=== PATIENT | female | born 1970 | race Caucasian/White ===

== ENCOUNTER 2016-10-18 16:57 | Emergency (ER) | payer MEDICARE ==
[~2016-10-18] VITALS: Ht 172.7 cm; Wt 72.7 kg
[~2016-10-18 16:57] MED LIST: CLON2TAB16 PO; DIVA500T2 PO; GABA800T2 PO; LEVO75TA5 PO; MIRT30TA3 PO; OMEP10SU PO; ONDA4TAB7 PO; PROP10TA PO; SERT50TA PO; SUCR1TAB26 PO
[2016-10-18 16:58] VITALS: BP 134/83
[2016-10-18] MEDS ORDERED: DIAZEPAM 5 MG TABLET PO ONE (17:30)
[2016-10-18] MEDS ORDERED: OXYcodone/APAP 5/325MG TABLET PO ONE ×2 (17:30→20:00)
[2016-10-18] MEDS ORDERED: METHOCARBAMOL 750 MG TABLET PO ONE (18:30)
[2016-10-18] MEDS ORDERED: KETOROLAC 30 MG/1 ML IM ONE (18:30)
[2016-10-18] MEDS ORDERED: METHOCARBAMOL 750 MG TABLET ONE (18:41)
[2016-10-18] MEDS ORDERED: KETOROLAC 30 MG/1 ML ONE (18:41)
[2016-10-18] MEDS ORDERED: OXYcodone/APAP 5/325MG TABLET ONE (19:58)
== END 2016-10-18 20:11 | disposition home or self-care (01) ==
LOC: ED 20:05
DX: M51.26 Other intervertebral disc displacement, lumbar region (principal); M54.16 Radiculopathy, lumbar region; Z85.038 Personal history of other malignant neoplasm of large intestine; E07.9 Disorder of thyroid, unspecified; Z88.6 Allergy status to analgesic agent; Z88.2 Allergy status to sulfonamides; Z88.1 Allergy status to other antibiotic agents; Z88.8 Allergy status to other drugs, medicaments and biological substances
CPT/HCPCS: 72148; 81003; 96372; 99285; J1885

== ENCOUNTER 2016-10-20 11:47 | Emergency (ER) | payer MEDICARE ==
[~2016-10-20] VITALS: Ht 172.7 cm; Wt 76.6 kg
[2016-10-20] MEDS ORDERED: SODIUM CHLORIDE 0.9% 1,000 ML IV ONE (12:20)
[2016-10-20] MEDS ORDERED: SODIUM CHLORIDE 0.9% 1,000ML IV ONE (12:30)
[2016-10-20] MEDS ORDERED: HYDROmorphone 1 MG/ML, 1ML IVPush PRN (12:30)
[2016-10-20] MEDS ORDERED: HYDROmorphone 1 MG/ML, 1ML ONE (13:26)
[2016-10-20] MEDS ORDERED: DIAZEPAM 5 MG/ML, 10ML VIAL IVPush ONE (13:30)
[2016-10-20 13:48] LABS: BLOOD UREA NITROGEN 18 mg/dL (7-18)
[2016-10-20] MEDS ORDERED: DEXAMETHASONE 4 MG/ML, 5ML ONE (13:59)
[2016-10-20] MEDS ORDERED: DEXAMETHASONE 4 MG/ML, 5ML IVPush ONE (14:00)
[2016-10-20 14:03] VITALS: BP 108/57
== END 2016-10-20 16:40 | disposition home or self-care (01) ==
LOC: ED 14:32
DX: M54.16 Radiculopathy, lumbar region (principal); Z85.038 Personal history of other malignant neoplasm of large intestine; Z85.028 Personal history of other malignant neoplasm of stomach; Z88.8 Allergy status to other drugs, medicaments and biological substances; Z88.2 Allergy status to sulfonamides; Z88.6 Allergy status to analgesic agent; Z88.1 Allergy status to other antibiotic agents; F17.200 Nicotine dependence, unspecified, uncomplicated
CPT/HCPCS: 36415; 80048; 82040; 85025; 96361; 96374; 96375; 99285; J1170; J3360; J7030

== ENCOUNTER 2016-10-25 10:29 | Emergency (ER) | payer MEDICARE, MEDICAID ==
[~2016-10-25] VITALS: Ht 172.7 cm; Wt 72.6 kg
[2016-10-25] MEDS ORDERED: SODIUM CHLORIDE 0.9% 1,000ML IV ONE (12:00)
[2016-10-25] MEDS ORDERED: KETOROLAC 30 MG/1 ML IVPush ONE (12:00)
[2016-10-25] MEDS ORDERED: SODIUM CHLORIDE FLUSH 10ML SYR IVF ONE (12:00)
[2016-10-25] MEDS ORDERED: HYDROmorphone 1 MG/ML, 1ML IVPush PRN (12:00)
[2016-10-25] MEDS ORDERED: METHOCARBAMOL 750 MG TABLET PO ONE (12:00)
[2016-10-25] MEDS ORDERED: KETOROLAC 30 MG/1 ML ONE (12:10)
[2016-10-25] MEDS ORDERED: METHOCARBAMOL 750 MG TABLET ONE (12:10)
[2016-10-25] MEDS ORDERED: HYDROmorphone 1 MG/ML, 1ML ONE (12:10)
[2016-10-25 12:33] LABS: BLOOD UREA NITROGEN 9 mg/dL (7-18)
[2016-10-25 14:05] VITALS: BP 120/76
== END 2016-10-25 14:58 | disposition home or self-care (01) ==
LOC: ED 12:59
DX: M51.16 Intervertebral disc disorders with radiculopathy, lumbar region (principal); Z85.028 Personal history of other malignant neoplasm of stomach; R33.9 Retention of urine, unspecified
CPT/HCPCS: 36415; 80048; 81003; 82040; 85025; 96361; 96374; 96375; 99285; J1170; J1885; J7030

== ENCOUNTER 2016-11-16 11:00 | Emergency (ER) | payer MEDICARE, MEDICAID ==
[~2016-11-16] VITALS: Ht 172.7 cm; Wt 74.0 kg
[2016-11-16 11:01] VITALS: BP 106/58
== END 2016-11-16 13:01 | disposition home or self-care (01) ==
LOC: ED 12:55
DX: Z32.01 Encounter for pregnancy test, result positive (principal); G89.29 Other chronic pain; M54.5 Low back pain; R11.0 Nausea; M79.89 Other specified soft tissue disorders; Z85.038 Personal history of other malignant neoplasm of large intestine; Z85.028 Personal history of other malignant neoplasm of stomach; F17.210 Nicotine dependence, cigarettes, uncomplicated
CPT/HCPCS: 36415; 84703; 99283

== ENCOUNTER 2016-11-22 15:54 | Emergency (ER) | payer MEDICARE, MEDICAID ==
[~2016-11-22] VITALS: Ht 172.7 cm; Wt 73.9 kg
[2016-11-22 16:40] LABS: ASPARTATE AMINO TRANSFERASE 12 U/L (15-37); BLOOD UREA NITROGEN 11 mg/dL (7-18)
[2016-11-22] MEDS ORDERED: PREN-3 PO (17:22)
[2016-11-22 17:47] LABS: PATH.CAST-FLAG NOT PRESENT; SPERM-FLAG NOT PRESENT; SRC-FLAG NOT PRESENT; XTAL-FLAG NOT PRESENT; YLC-FLAG NOT PRESENT
[2016-11-22 18:49] VITALS: BP 110/50
== END 2016-11-22 19:57 | disposition home or self-care (01) ==
LOC: ED 17:36
DX: O20.9 Hemorrhage in early pregnancy, unspecified (principal); Z3A.10 10 weeks gestation of pregnancy; Z87.891 Personal history of nicotine dependence; Z85.038 Personal history of other malignant neoplasm of large intestine
CPT/HCPCS: 36415; 76801; 80053; 81001; 84702; 85025; 86901; 99285

== ENCOUNTER 2016-11-23 12:58 | Emergency (ER) | payer MEDICARE, MEDICAID ==
[~2016-11-23] VITALS: Ht 172.7 cm; Wt 74.3 kg
[~2016-11-23 12:58] MED LIST changes: +PREN-3 PO
[2016-11-23] MEDS ORDERED: SODIUM CHLORIDE 0.9% 1,000ML IVBOLUS ONE (14:30)
[2016-11-23] MEDS ORDERED: MORPHINE SULFATE 4 MG/ML, 1ML IVPush PRN (14:30)
[2016-11-23] MEDS ORDERED: ONDANSETRON 2MG/ML, 2ML IVPush ONE (14:30)
[2016-11-23] MEDS ORDERED: SODIUM CHLORIDE FLUSH 10ML SYR IVF ONE (14:30)
[2016-11-23] MEDS ORDERED: ONDANSETRON 2MG/ML, 2ML ONE (14:32)
[2016-11-23] MEDS ORDERED: MORPHINE SULFATE 4 MG/ML, 1ML ONE (14:32)
[2016-11-23 16:12] VITALS: BP 104/49
== END 2016-11-23 16:14 | disposition home or self-care (01) ==
LOC: ED 14:20
DX: O26.899 Other specified pregnancy related conditions, unspecified trimester (principal); R10.30 Lower abdominal pain, unspecified; O99.330 Smoking (tobacco) complicating pregnancy, unspecified trimester; F17.200 Nicotine dependence, unspecified, uncomplicated; Z88.6 Allergy status to analgesic agent; Z88.1 Allergy status to other antibiotic agents; Z88.2 Allergy status to sulfonamides; Z88.8 Allergy status to other drugs, medicaments and biological substances; Z3A.00 Weeks of gestation of pregnancy not specified
CPT/HCPCS: 36415; 76801; 81001; 84702; 85025; 96361; 96374; 96375; 99285; J2405; J7030

== ENCOUNTER 2016-12-20 17:47 | Emergency (ER) | payer MEDICARE, MEDICAID ==
[~2016-12-20] VITALS: Ht 172.7 cm; Wt 72.6 kg
[2016-12-20 17:50] VITALS: BP 116/75
== END 2016-12-20 18:43 | disposition left against medical advice (07) ==
LOC: ED 18:37
DX: K13.79 Other lesions of oral mucosa (principal); Z53.21 Procedure and treatment not carried out due to patient leaving prior to being seen by health care provider

== ENCOUNTER 2016-12-30 09:16 | Emergency (ER) | payer MEDICARE, MEDICAID ==
[~2016-12-30] VITALS: Ht 172.7 cm; Wt 70.9 kg
[~2016-12-30 09:16] MED LIST changes: -SUCR1TAB26 PO; +SUCR1TAB33 PO
[2016-12-30 09:17] VITALS: BP 123/81
== END 2016-12-30 10:14 | disposition home or self-care (01) ==
LOC: ED 09:32
DX: E03.9 Hypothyroidism, unspecified (principal); F31.9 Bipolar disorder, unspecified; G62.9 Polyneuropathy, unspecified
CPT/HCPCS: 93005; 99283

== ENCOUNTER 2017-01-19 14:30 | Emergency (ER) | payer MEDICARE, MEDICAID ==
[~2017-01-19] VITALS: Ht 172.7 cm; Wt 71.5 kg
[2017-01-19 14:32] VITALS: BP 137/84
== END 2017-01-19 15:25 | disposition home or self-care (01) ==
LOC: ED 15:20
DX: F41.1 Generalized anxiety disorder (principal); F31.9 Bipolar disorder, unspecified; Z85.038 Personal history of other malignant neoplasm of large intestine; Z88.6 Allergy status to analgesic agent; Z88.2 Allergy status to sulfonamides; Z88.8 Allergy status to other drugs, medicaments and biological substances
CPT/HCPCS: 99283

== ENCOUNTER 2017-05-28 07:19 | Emergency (ER) | payer MEDICARE, MEDICAID ==
[~2017-05-28] VITALS: Ht 172.7 cm; Wt 81.1 kg
[~2017-05-28 07:19] MED LIST changes: -OMEP10SU PO; +OMEP10SU2 PO
[2017-05-28] MEDS ORDERED: KETOROLAC 30 MG/1 ML IM ONE (08:30)
[2017-05-28] MEDS ORDERED: CYCLOBENZAPRINE 10 MG TABLET PO ONE (08:30)
[2017-05-28] MEDS ORDERED: SODIUM CHLORIDE FLUSH 10ML SYR IVF ONE (08:30)
[2017-05-28] MEDS ORDERED: CYCLOBENZAPRINE 10 MG TABLET ONE (08:40)
[2017-05-28 08:41] LABS: BASOPHILS % (AUTO) 1 % (0-1); EOSINOPHILS # (AUTO) 1.39 x10^3/uL (0-0.4); EOSINOPHILS % (AUTO) 18 % (1-7); LYMPHOCYTES # (AUTO) 1.18 x10^3/uL (1-3.4); LYMPHOCYTES % (AUTO) 15 % (22-44); MD NO; MEAN CORPUSCULAR HEMOGLOBIN 30.2 pg (27.0-34.8); MEAN CORPUSCULAR HGB CONC 33.4 g/dL (32.4-35.8); MEAN CORPUSCULAR VOLUME 90.6 fL (80-100); MEAN PLATELET VOLUME 8.2 fL (7.4-10.4); MONOCYTES # (AUTO) 0.22 x10^3/uL (0.2-0.8); MONOCYTES % (AUTO) 3 % (2-9); NEUTROPHILS # (AUTO) 4.95 x10^3/uL (1.8-6.8); NEUTROPHILS % (AUTO) 63 % (42-75); PLATELET COUNT 229 x10^3/uL (130-400); RED BLOOD COUNT 3.64 x10^6/uL (3.82-5.3)
[2017-05-28] MEDS ORDERED: KETOROLAC 30 MG/1 ML ONE (08:41)
[2017-05-28 08:54] LABS: ALBUMIN 2.6 g/dL (3.4-5.0); CALCIUM 7.8 mg/dL (8.5-10.1); CREATININE 0.85 mg/dL (0.55-1.02)
[2017-05-28 09:08] LABS: ANION GAP 7 mmol/L (5-15); CHLORIDE 115 mmol/L (98-107)
[2017-05-28 09:11] LABS: MICROSCOPIC NOT IND
[2017-05-28 09:13] VITALS: BP 103/46
[2017-05-28] MEDS ORDERED: GADOBUTROL 7.5 MMOL/7.5 ML PFS ONE (09:26)
[2017-05-28 09:30] LABS: CULTURE INDICATED? NO
[2017-05-28] MEDS ORDERED: KETOROLAC 30 MG/1 ML IVPush ONE (10:00)
[2017-05-28 10:35] LABS: ALANINE AMINOTRANSFERASE 23 U/L (12-78); ALBUMIN 2.7 g/dL (3.4-5.0)
[2017-05-28 10:37] LABS: ALKALINE PHOSPHATASE 53 U/L (45-117); BILIRUBIN,TOTAL 0.2 mg/dL (0.2-1.0); TOTAL PROTEIN 5.1 g/dL (6.4-8.2)
[2017-05-28 10:41] LABS: BILIRUBIN, DIRECT < 0.1 mg/dL (0.1-0.2); BILIRUBIN,INDIRECT 0.1 mg/dL (0.0-2.0)
== END 2017-05-28 11:18 | disposition home or self-care (01) ==
LOC: ED 09:00
DX: S33.5XXA Sprain of ligaments of lumbar spine, initial encounter (principal); M51.36 Other intervertebral disc degeneration, lumbar region; M48.061 Spinal stenosis, lumbar region without neurogenic claudication; M51.26 Other intervertebral disc displacement, lumbar region; X58.XXXA Exposure to other specified factors, initial encounter; Y93.89 Activity, other specified; Y92.89 Other specified places as the place of occurrence of the external cause; Y99.9 Unspecified external cause status
CPT/HCPCS: 36415; 72158; 80048; 80076; 81003; 82040; 85025; 96374; 99285; A9585; J1885

== ENCOUNTER 2020-03-15 13:47 | Emergency (ER) | payer MEDICARE, MEDICAID ==
[~2020-03-15] VITALS: Ht 172.7 cm; Wt 61.9 kg
[~2020-03-15 13:47] MED LIST changes: -GABA800T2 PO; +GABA800T5 PO; -PROP10TA PO; +PROP10TA16 PO
[2020-03-15] MEDS ORDERED: FAMOTIDINE 20 MG TABLET ONE (14:38)
[2020-03-15] MEDS ORDERED: LORazepam 1MG TABLET ONE (14:38)
[2020-03-15] MEDS ORDERED: PROMETHAZINE 25 MG/ML, 1ML ONE (14:38)
[2020-03-15] MEDS ORDERED: PROMETHAZINE 25 MG/ML, 1ML IM ONE (15:00)
[2020-03-15] MEDS ORDERED: LORazepam 1MG TABLET PO ONE (15:00)
[2020-03-15] MEDS ORDERED: FAMOTIDINE 20 MG TABLET PO ONE (15:00)
[2020-03-15 15:19] LABS: BASOPHILS % (AUTO) 1 % (0-1); EOSINOPHILS % (AUTO) 1 % (1-7); LYMPHOCYTES % (AUTO) 16 % (22-44); MEAN CORPUSCULAR HEMOGLOBIN 28.6 pg (27.0-34.8); MEAN PLATELET VOLUME 8.3 fL (7.4-10.4); MONOCYTES % (AUTO) 6 % (2-9); NEUTROPHILS % (AUTO) 76 % (42-75); PLATELET COUNT 158 x10^3/uL (130-400); RED BLOOD COUNT 5.02 x10^6/uL (3.82-5.3); RED CELL DISTRIBUTION WIDTH 17.8 % (9.6-15.2)
[2020-03-15 15:21] LABS: MD NO
[2020-03-15 15:24] LABS: ALANINE AMINOTRANSFERASE 46 U/L (12-78); ALBUMIN 3.8 g/dL (3.4-5.0); ANION GAP 5 mmol/L (5-15); CALCIUM 8.9 mg/dL (8.5-10.1); CHLORIDE 106 mmol/L (98-107); CREATININE 0.78 mg/dL (0.55-1.02)
[2020-03-15 15:26] LABS: ALKALINE PHOSPHATASE 114 U/L (45-117); TOTAL PROTEIN 7.5 g/dL (6.4-8.2)
[2020-03-15 15:51] LABS: MICROSCOPIC INDICATED
[2020-03-15 16:05] VITALS: BP 112/64
== END 2020-03-15 16:13 | disposition home or self-care (01) ==
LOC: ED 14:15
DX: F41.9 Anxiety disorder, unspecified (principal); F10.10 Alcohol abuse, uncomplicated; Z76.0 Encounter for issue of repeat prescription; R10.9 Unspecified abdominal pain; F17.210 Nicotine dependence, cigarettes, uncomplicated; R00.0 Tachycardia, unspecified; E03.9 Hypothyroidism, unspecified; Z85.038 Personal history of other malignant neoplasm of large intestine; Y90.9 Presence of alcohol in blood, level not specified
CPT/HCPCS: 36415; 80053; 81001; 83690; 85025; 96372; 99283; 99406; J2550